=== PATIENT | female | born 1930 | race Caucasian/White ===

== ENCOUNTER 2017-12-16 09:45 | Emergency (ER) | payer BC ==
[2017-12-16 10:37] VITALS: BMI 23.0
--- NOTE | 2017-12-16 10:42 | PDOC ---
History of Present Illness - General History Source: Patient, Family Exam Limitations: Dementia - History of Present Illness Initial Comments: 12/16/17 11:13 The patient is an 87-year-old female, lives with son, presents to the emergency department s/p a fall. The patient was brought to the ER by her son, who reports she was found on the floor around 9:00 am. The son reports, the patient has a history of frequent falls, last fall was 3 weeks ago. The son reports the patient is currently at her baseline, no changes to the mental status. The son states at baseline the patient is confused and often very forgetful. The son reports about 3 months ago; the patient suffered a scrape to the R. lower extremity that turned into a wound. The son reports the patient currently ambulates slowly with a cane. The patient is presently on Pradaxa. The patient denies any pain or reports any complain. PMHx: ASHD, CHF, AFib, prior CVA (2011,2014), Urinary bladder CA, and COPD. Allergies: NKDA SHx: Former smoker. No alcohol or recreational drug use reported/ PSHx: L. hip replacement and Cholecystectomy PCP: Arina Mendoza <Delilah Sorensen - Last Filed: 12/16/17 11:12> - General History Source: Patient, Family Exam Limitations: Dementia <Marcelino Harrison - Last Filed: 12/16/17 14:18> - General Stated Complaint: FALL Time Seen by Provider: 12/16/17 10:06 Past History <Delilah Sorensen - Last Filed: 12/16/17 11:12> - Past Medical History Anemia: No Asthma: No Cancer: Yes (bladder) Cardiac Disorders: Yes (cardiac arrythmmia, ASHD, AF) CVA: Yes (MULTIPLE TIA 2011) COPD: No CHF: No Dementia: No Diabetes: No GI Disorders: No Disorders: (UTI's) HTN: Yes Hypercholesterolemia: Yes Liver Disease: No Seizures: No Thyroid Disease: No - Surgical History Abdominal Surgery: No Appendectomy: No Cardiac Surgery: No Cholecystectomy: Yes Lung Surgery: No Neurologic Surgery: No Orthopedic Surgery: Yes (R. HIP REPLACEMENT REPAIR) - Suicide/Smoking/Psychosocial Hx Smoking Status: Yes Smoking History: Unknown if ever smoked Have you smoked in the past 12 months: No Number of Cigarettes Smoked Daily: 2 'Breaking Loose' booklet given: 09/11/14 Hx Alcohol Use: No Drug/Substance Use Hx: No Substance Use Type: None Hx Substance Use Treatment: No <ChristyMarcelino - Last Filed: 12/16/17 14:18> - Past Medical History Allergies/Adverse Reactions: Allergies Allergy/AdvReac Type Severity Reaction Status Date / Time No Known Drug Allergies Allergy Verified 12/16/17 10:35 Home Medications: Ambulatory Orders Atorvastatin Ca [Lipitor] 20 mg PO HS #0 tablet 01/24/12 Metoprolol Succinate [Toprol XL -] 50 mg PO DAILY 12/26/13 Dabigatran Etexilate Mesylate [Pradaxa -] 150 mg PO BID 09/11/14 Amoxicillin/Potassium Clav [Augmentin 875-125 Tablet] 1 each PO BID #6 tablet Cadexomer Iodine [Iodosorb] 10 gm TP DAILY #1 gel..gram. 06/24/17 Lisinopril [Prinivil] 5 mg PO DAILY 06/24/17 Ranitidine HCl 150 mg PO DAILY 06/24/17 Review of Systems - Review of Systems Able to Perform ROS?: No (Limited due to Dementia. ) <Delilah Sorensen - Last Filed: 12/16/17 11:12> *Physical Exam - Vital Signs Last Vital Signs Temp Pulse Resp BP Pulse Ox 98.1 F 85 18 146/75 95 12/16/17 09:45 12/16/17 09:45 12/16/17 09:45 12/16/17 09:45 12/16/17 09:45 - Physical Exam Comments: 12/16/17 11:20 GENERAL: AOx1 to self. in no acute distress HEAD: No signs of trauma EYES: PERRLA, EOMI, sclera anicteric, conjunctiva clear ENT: Auricles normal inspection, hearing grossly normal, nares patent, oropharynx clear without exudates. Moist mucosa NECK: Normal ROM, supple, JVD, or masses LUNGS: Breath sounds equal, clear to auscultation bilaterally. No wheezes, and no crackles HEART: Irregularly irregular. normal S1 and S2, no murmurs, rubs or gallops ABDOMEN: Soft, nontender, No guarding, no rebound. No masses BACK: No C-spine tenderness. EXTREMITIES: Normal range of motion, no edema. No clubbing or cyanosis. No cords, erythema, or tenderness NEUROLOGICAL: Cranial nerves II through XII grossly intact. Normal speech. SKIN: Warm, Dry, normal turgor, no rashes or lesions noted. <Delilah Sorensen - Last Filed: 12/16/17 11:12> - Vital Signs Last Vital Signs Temp Pulse Resp BP Pulse Ox 98.1 F 85 18 146/75 95 12/16/17 09:45 12/16/17 09:45 12/16/17 09:45 12/16/17 09:45 12/16/17 09:45 <Marcelino Harrison - Last Filed: 12/16/17 14:18> Heart Score/ECG Review #1 ECG reviewed & interpreted by me at: 10:40 12/16/17 10:41 atrial fibrillation 81, left axis deviation, low voltage QRS, TWI III, T wave flat II, aVF, QTC 453 msec, no brugada no HOCM, no WPW <Marcelino Harrison - Last Filed: 12/16/17 14:18> ED Treatment Course - LABORATORY CBC & Chemistry Diagram: 12/16/17 11:09 12/16/17 10:30 <Delilah Sorensen - Last Filed: 12/16/17 11:12> - LABORATORY CBC & Chemistry Diagram: 12/16/17 11:09 12/16/17 10:30 - RADIOLOGY Radiology Studies Ordered: Category Date Time Status CERVICAL SPINE CT W/O CONTR [CT] Stat CT Scan 12/16/17 10:[address] WITHOUT CONTRAST [CT] Stat CT Scan 12/16/17 10:14 Ordered CHEST X-RAY PORTABLE* [RAD] Stat Radiology 12/16/17 10:14 Ordered <Marcelino Harrison - Last Filed: 12/16/17 14:18> Medical Decision Making - Medical Decision Making 12/16/17 10:40 A portion of this note was written by my scribe, under my supervision. Vital Signs Temp Pulse Resp BP Pulse Ox 98.1 F 85 18 146/75 95 12/16/17 09:45 12/16/17 09:45 12/16/17 09:45 12/16/17 09:45 12/16/17 09:45 87-year-old female with history of bladder cancer, atrial fibrillation, TIA, urinary tract infection, hypertension, hyperlipidemia, dementia brought in by her son for found down on the ground. Patient's history is limited by her dementia. The son does report that she appears to be at baseline. Reports that she walked in to check on her this morning and found her on the ground. The patient denies any pain at this time. Son denies any recent illnesses for the patient. No fevers, chills, cough, vomiting, diarrhea. Given that she is on an anticoagulant, we'll need to obtain a head CT to rule out intracranial hemorrhage. We'll also obtain a C-spine imaging. Given that she was found down on the ground, we'll obtain blood work to look for rhabdomyolysis or other metabolic disarray. Given her history of urinary tract infections, we'll obtain urine analysis. Unclear if this is syncope, so we'll obtain an EKG. Reassess. 12/16/17 14:07 CBC, BMP 12/16/17 11:09 12/16/17 10:30 CMP Sodium 147 mmol/L (136-145) H 12/16/17 10:30 Potassium 4.0 mmol/L (3.5-5.1) 12/16/17 10:30 Chloride 114 mmol/L (98-107) H 12/16/17 10:30 Carbon Dioxide 22 mmol/L (21-32) 12/16/17 10:30 Anion Gap 11 MMOL/L (8-16) 12/16/17 10:30 BUN 17 mg/dL (7-18) 12/16/17 10:30 Creatinine 0.7 mg/dL (0.55-1.02) 12/16/17 10:30 Creat Clearance w eGFR > 60 (>60) 12/16/17 10:30 Random Glucose 79 mg/dL (74-106) 12/16/17 10:30 Calcium 8.6 mg/dL (8.5-10.1) 12/16/17 10:30 Phosphorus 3.2 mg/dL (2.5-4.9) 12/16/17 10:30 Magnesium 1.8 mg/dL (1.8-2.4) 12/16/17 10:30 Total Bilirubin 1.2 mg/dL (0.2-1.0) H 12/16/17 10:30 AST 19 U/L (15-37) 12/16/17 10:30 ALT 15 U/L (12-78) 12/16/17 10:30 Alkaline Phosphatase 68 U/L (45-117) 12/16/17 10:30 Creatine Kinase 100 IU/L (26-192) 12/16/17 11:09 Total Protein 6.5 g/dl (6.4-8.2) 12/16/17 10:30 Albumin 3.2 g/dl (3.4-5.0) L 12/16/17 10:30 Urine Test Results Urine Color Yellow 12/16/17 11:09 Urine Appearance Slcloudy 12/16/17 11:09 Urine pH 5.0 (5.0-8.0) 12/16/17 11:09 Ur Specific [place] 1.020 (1.001-1.035) 12/16/17 11:09 Urine Protein Negative (NEGATIVE) 12/16/17 11:09 Urine Glucose (UA) Negative (NEGATIVE) 12/16/17 11:09 Urine Ketones Negative (NEGATIVE) 12/16/17 11:09 Urine Blood 3+ (NEGATIVE) H 12/16/17 11:09 Urine Nitrite Negative (NEGATIVE) 12/16/17 11:09 Urine Bilirubin Negative (<2.0 mg/dL) 12/16/17 11:09 Ur Leukocyte Esterase Negative (NEGATIVE) 12/16/17 11:09 Ur Epithelial Cells Rare /HPF (FEW) 12/16/17 11:09 Urine Bacteria Rare /hpf (NONE SEEN) 12/16/17 11:09 Urine Mucus Few 12/16/17 11:09 CT Head and cervical spine reviewed. No acute findings. Chest xray with cardiomegaly, but with no acute findings. Blood work is unremarkable and family is at bedside. Will discharge patient back to pt's home for outpatient followup. 12/16/17 14:18 I instructed the patient's daughter regarding the hematuria. Will await for urine culture results. I advised that the patient will likely need urology followup including potential malignancy workup. Pt's daughter verbalizes understanding and agrees with plan. <Marcelino Harrison - Last Filed: 12/16/17 14:18> *DC/Admit/Observation/Transfer - Attestations Scribe Attestion: 12/16/17 11:20 Documentation prepared by Delilah Sorensen, acting as medical records analyst for Marcelino Harrison MD. <Delilah Sorensen - Last Filed: 12/16/17 11:12> - Discharge Dispostion Decision to Admit order: No <Marcelino Harrison - Last Filed: 12/16/17 14:18> Diagnosis at time of Disposition: Fall Qualifiers: Encounter type: initial encounter Qualified Code(s): W19.XXXA - Unspecified fall, initial encounter - Discharge Dispostion Disposition: HOME Condition at time of disposition: Stable - Referrals Referrals: Arina Cowan [Primary Care Provider] - - Patient Instructions Printed Discharge Instructions: How to Prevent Falls Additional Instructions: Your workup here in the emergency department is negative. Please follow up with her doctor. If you notice that she is having an excruciating amount of pain, please return to the ER. - Post Discharge Activity
[2017-12-16 11:14] LABS: BASO % 0.4 % (0-2.0); HEMATOCRIT 35.6 % (32.4-45.2); HEMOGLOBIN 11.7 GM/dL (10.7-15.3); LYMPH % 11.2 % (8-40); MCH 30.1 pg (25.7-33.7); MCHC 32.9 g/dl (32.0-36.0); MEAN CELL VOLUME 91.3 fl (80-96); MEAN PLT VOLUME 8.9 fl (7.5-11.1); MONO % 7.5 % (3.8-10.2); NEUT % 79.9 % (42.8-82.8); PLATELET COUNT 175 K/MM3 (134-434); RDW 16.2 % (11.6-15.6); WHITE BLOOD COUNT 8.9 K/mm3 (4.0-10.0)
[2017-12-16 11:22] LABS: URINE APPEARANCE SLCLOUDY; URINE BILIRUBIN NEGATIVE (<2.0 mg/dL); URINE COLOR YELLOW; URINE GLUCOSE (UA) NEGATIVE (NEGATIVE); URINE KETONE NEGATIVE (NEGATIVE); URINE LEUK ESTERASE NEGATIVE (NEGATIVE); URINE NITRITE NEGATIVE (NEGATIVE); URINE PROTEIN NEGATIVE (NEGATIVE)
[2017-12-16 11:27] LABS: INR 1.37 (0.83-1.09); PROTHROMBIN TIME (PATIENT) 15.5 SEC (9.7-13.0)
[2017-12-16 11:29] LABS: EPI CELLS RARE /HPF (FEW); GRANULAR CASTS 1 /lpf; URINE BACTERIA RARE /hpf (NONE SEEN); URINE MUCUS FEW
[2017-12-16 11:30] LABS: ACTIVATED PTT 48.1 SECONDS (25.2-36.5)
[2017-12-16 12:00] LABS: ALBUMIN 3.2 g/dl (3.4-5.0); ANION GAP 11 MMOL/L (8-16); BLOOD UREA NITROGEN 17 mg/dL (7-18); CALCIUM 8.6 mg/dL (8.5-10.1); CHLORIDE 114 mmol/L (98-107); CO2 22 mmol/L (21-32); GLUCOSE,RANDOM 79 mg/dL (74-106); MAGNESIUM 1.8 mg/dL (1.8-2.4); SODIUM 147 mmol/L (136-145)
[2017-12-16 12:05] LABS: ALK PHOS 68 U/L (45-117); BILIRUBIN,TOTAL 1.2 mg/dL (0.2-1.0); CREATININE 0.7 mg/dL (0.55-1.02); PHOSPHOROUS 3.2 mg/dL (2.5-4.9); SGOT/AST 19 U/L (15-37); SGPT/ALT 15 U/L (12-78); TOT PROT 6.5 g/dl (6.4-8.2)
[2017-12-16 15:14] VITALS: BP 138/77; PULSE 87; TEMP 98
--- NOTE | 2017-12-18 14:00 | EKG ---
Test Reason : Blood Pressure : / mmHG Vent. Rate : 081 BPM Atrial Rate : 088 BPM P-R Int : 000 ms QRS Dur : 084 ms QT Int : 390 ms P-R-T Axes : 000 -52 -27 degrees QTc Int : 453 ms ATRIAL FIBRILLATION LEFT AXIS DEVIATION LOW VOLTAGE QRS CANNOT RULE OUT ANTERIOR INFARCT (CITED ON OR BEFORE 11-SEP-2014) ABNORMAL ECG WHEN COMPARED WITH ECG OF 11-SEP-2014 16:32, COMPARED TO EKG NO SIGNIFICANT CHANGE IS FOUND Confirmed by SCAR GUERIN MD ([id number]) on 12/18/2017 1:59:44 PM Referred By: Confirmed By:SCAR GUERIN MD
== END 2017-12-16 14:40 | disposition home or self-care (01) ==
LOC: JER 09:45
DX: S09.8XXA Other specified injuries of head, initial encounter (principal); W18.39XA Other fall on same level, initial encounter; Z91.81 History of falling; Y93.89 Activity, other specified; Y92.018 Other place in single-family (private) house as the place of occurrence of the external cause; Y99.8 Other external cause status; I25.10 Atherosclerotic heart disease of native coronary artery without angina pectoris; I10 Essential (primary) hypertension; I48.91 Unspecified atrial fibrillation; Z79.01 Long term (current) use of anticoagulants; J44.9 Chronic obstructive pulmonary disease, unspecified; F03.90 Unspecified dementia, unspecified severity, without behavioral disturbance, psychotic disturbance, mood disturbance, and anxiety; Z86.73 Personal history of transient ischemic attack (TIA), and cerebral infarction without residual deficits; R26.89 Other abnormalities of gait and mobility; Z99.89 Dependence on other enabling machines and devices; Z85.51 Personal history of malignant neoplasm of bladder
CPT/HCPCS: 36415; 70450-TC; 71045-TC-FY; 72125-TC; 80053; 81003; 81015; 82550; 83735; 84100; 85025; 85610; 85730; 87086; 93005; 93010; 99285-25